=== PATIENT | female | born 1970 | race African-American/Black ===

== ENCOUNTER → 2016-12-17 | Outpatient (CLI) | payer OTHER ==
[~2016-12-17] MED LIST: ATENOLOL; ATENOLOL PO; CLINORIL PO; FLEXERIL PO; K-DUR20 ME2 PO; LORTAB 7.5-5001 TAB PO; MIDOL CAPLET1 EACH; MOTION SICKNESS25 M4 PO; NORVASC; ULTRAM PO
--- NOTE | ~2016-12-17 | CT4 ---
[facility] A Service of [facility] RADIOLOGY TEXT RESULTS PATIENT: ADY SAHA [facility] UN[facility] #: [id number] AGE: [address]: Mario Peoples MD SEX: F ORDER DR: [id number] [facility] [address] [place], [place] [address] [id number] O MR#: [id number] Acc #: [id number] NAME: ADY SAHA. : 1970 SEX: F STUDY DATE/TIME: 12/17/2016 12:13 UNIT: [facility]AT ROOM: STUDY DESCRIPTION: CT Abd and Pelv Wo Cont Attending Physician: Mario Peoples M.D. Referring Physician: Mario Peoples M.D. Ordering Physician: Mario Peoples M.D. Primary Care Physician: Dev Hong [facility] IMAGING REPORT This report is preliminary unless electronic signature is present EXAM CT abdomen and pelvis without contrast. DATE 12/17/2016 HISTORY 46-year-old female right upper quadrant abdominal pain for 2 years radiating to the back. Additional history of hypertension, diabetes, enlarged heart. Previous hysterectomy. COMPARISON CT abdomen and pelvis without contrast 01/15/2013. HIDA scan 10/23/2016. PROCEDURE 5 mm noncontrast axial images through the abdomen and pelvis. Enteric contrast was administered. Sagittal and coronal reformatted images were obtained. This CT exam was performed with one or more of the following radiation dose reduction techniques: automatic exposure control, adjustment of mA and/or kV according to patient size, and iterative reconstruction. FINDINGS ABDOMEN FINDINGS: The liver is enlarged measuring 21.2 cm craniocaudally and is markedly and diffusely steatotic. The liver has a similar appearance to the 01/15/2013 examination. No focal liver lesion is identified. The spleen, pancreas, adrenals, and kidneys have a normal noncontrast appearance. The gallbladder is contracted but appears unremarkable. Shotty central mesenteric lymph nodes are present, do not appear [facility] A Service of [facility] RADIOLOGY TEXT RESULTS PATIENT: ADY SAHA [facility]: [facility] : 70 UNIT #: [id number] AGE: [address]: Mario Peoples MD SEX: F ORDER DR: pathologically enlarged by CT criteria, and are thought to be stable since 2012. No fluid collections are identified. The appendix is normal. No abnormal large or small bowel dilation or focal bowel inflammatory change is evident. PELVIS FINDINGS: The uterus is surgically absent. Urinary bladder and rectum are normal. No pathologic adenopathy or free fluid is identified. No acute or suspicious osseous abnormalities are evident. There is facet arthropathy bilaterally at L4-5. IMPRESSION 1. No acute findings within the abdomen and pelvis on this noncontrast study. 2. Hepatomegaly with diffuse hepatic steatosis. 3. Normal appendix. 4. Hysterectomy. 5. No urinary tract stone or hydronephrosis. 6. Bilateral L4-5 facet arthropathy. Dictated by... Shaneka Pena M.D. THIS IS AN ELECTRONICALLY VERIFIED REPORT Shaneka Pena M.D. at 12/17/2016 5:06 PM AMANDA/estefany TD: 12/17/2016 16:17 JOB #: [id number] MEDICAL IMAGING REPORT Page 1 of 1 COPY
== END | disposition home or self-care (01) ==
LOC: CCAT 10:55
DX: R10.9 Unspecified abdominal pain (principal); R11.0 Nausea; K76.0 Fatty (change of) liver, not elsewhere classified; R16.0 Hepatomegaly, not elsewhere classified; M46.96 Unspecified inflammatory spondylopathy, lumbar region; Z90.710 Acquired absence of both cervix and uterus
CPT/HCPCS: 74176